=== PATIENT | female | born 1940 | race Caucasian/White ===

== ENCOUNTER 2017-12-09 18:16 | Emergency (ER) | payer MEDICARE, MEDICAID, SELFPAY ==
[2017-12-09 18:21] VITALS: BP 181/83; PULSE 62; RESP 20; TEMP 37.2; O2SAT 98; BMI 23.0
--- NOTE | 2017-12-09 18:35 | CT_ITS ---
CT head/brain wo con Ordering Physician: Jessica Forbes MD Patient Age: 77 years: Female HISTORY: ITS.REASON: fall fell and hit left side of head on floor. Left temporal area trauma . TECHNIQUE: Axial CT head without contras All CT scans at this facility used one or more dose reduction techniques , viz: automatic exposure control, ma/Kv adjustment per patient's size, (including targeted exam where dose matched to the indication; i.e. head); or iterative reconstruction technique COMPARISON : No previous studies FINDINGS No acute intracranial findings. No hemorrhage. No subdural nor extra-axial collection. No territorial infarct. Chronic small vessel deep white matter ischemic gliotic changes at cerebral hemispheres bilaterally. These are most evident about the anterior horns. Also areas at the anterior limb of the left> right internal capsule regions with low-density from small vessel disease.. These appear to be old changes. Posterior fossa. No acute findings. .. Ventricles size size satisfactory and correspond with the cerebral atrophy skull is intact and visualized paranasal sinuses clear. Mastoid, middle air and IACs regions unremarkable IMPRESSION: No acute intracranial findings. Diffuse cerebral atrophy age-appropriate. & Chronic small vessel deep white matter ischemic changes
--- NOTE | 2017-12-09 18:35 | CT_ITS ---
CT CERVICAL SPINE WITHOUT CONTRAST CT RECONSTRUCTIONS HISTORY:Neck pain following injury ORDERING PHYSICIAN: Jessica Forbes MD PATIENT AGE: 77 years COMPARISON: None Technique: All CT scans at the facility use one or more dose reduction, viz: automated exposure control; ma/kV adjustment per patient size (including targeted exams where dose is matched to indication; i.e. head); or iterative reconstruction technique PROCEDURE: Axial spiral CT scanning performed of the cervical spine beginning at the base of the skull and continuing to the upper T-spine. 3-D multiplanar reconstruction with 3-D manipulation of volumetric data set in image rendering was completed by the radiologist and/or technologist with the supervision of the radiologist on independent workstation. FINDINGS: No fracture nor subluxation is evident. Normal prevertebral soft tissues. Mild edema disc disease C4-C5 C5-C6 and C6-C7. No acute finding in the lung apices. There is a left subclavian artery stent present. No prevertebral soft tissue swelling. Mild arthritic changes are present involving the left TMJ IMPRESSION: No acute fracture. Mild cervical spondylosis
--- NOTE | 2017-12-09 18:36 | HMH.EDFALL ---
ED Disposition Clinical Impression: Fall, Knee contusion, Head injury without skull fracture Disposition: Home, Self-Care Condition on Discharge: Fair Additional Instructions: 1- head injury instructions. 2- rest and ice for the left knee. 3- fall precautions. 4- follow up with pcp in AM on final x ray reports and labs. 5- return if needed. - Critical Care Critical Care Time: No Attestation: On , the high probability of a clinically significant, sudden or life threatening deterioration of the following system(s) required my full and direct attention, intervention and personal management. The time I documented below is in addition to time spent performing reported procedures but includes the following listed in this critical care notation. Medical Decision Making - Enrique Inquiry Pt receiving controlled substance: No Enrique was queried for this patient: No Vital Signs: 12/09/17 18:21 Temperature 98.9 F Temperature Source Oral Pulse Rate [Right Brachial] 62 Respiratory Rate 20 Blood Pressure [Right Arm] 181/83 Blood Pressure Mean [Right Arm] 115 Blood Pressure Source [Right Arm] Automatic Cuff Blood Pressure Position [Right Arm] Supine 02 Sat by Pulse Oximetry 98 Oxygen Delivery Method Room Air - Lab Data Lab Results 12/09/17 19:20: WBC 6.7, RBC 4.75, Hgb 13.5, Hct 43.0, MCV 90.7, MCH 28.5, MCHC 31.4 L, RDW 13.2, Plt Count 182, MPV 9.0, Neut % (Auto) 50.7, Lymph % (Auto) 39.4, [place] % (Auto) 5.1, Eos % (Auto) 4.0, Baso % (Auto) 0.7, Neut # (Auto) 3.4, Lymph # (Auto) 2.7, [place] # (Auto) 0.3, Eos # (Auto) 0.3, Baso # (Auto) 0.1 12/09/17 19:20: Sodium 139, Potassium 3.7, Chloride 104, Carbon Dioxide 29, Anion Gap 9.7, BUN 12, Creatinine 0.76, Estimated Creat Clear 42, Estimated GFR 73, Est GFR ( Amer) 89, Glucose 219 H, Calcium 8.6, Magnesium 2.0 Result diagrams: 12/09/17 19:20 12/09/17 19:20 Orders (Tests/Meds): ORDERS Category Date Time Status CT cervical spine wo con Stat Cat Scan 12/09/17 18:[address] head/brain wo con Stat Cat Scan 12/09/17 18:35 Taken - CT Data CT Scan: Head, C-Spine Time Received: 19:[address] Reviewed: Yes: I discussed the CT results w/the radiologist, I have viewed the radiologist's interpretation Preliminary Findings: Normal/NAD - ECG Data Tracing #1 Normal sinus rhythm 60/min baseline artifact no acute findings stable from EKG done on 04/27/2014. ECG initial impression date: 12/09/17 ECG initial impression time: 18:45 Medical Decision Narrative: Patient remained neurologically and hemodynamically stable she underwent negative CT scan of the head and cervical spine for acute injuries. Her labs were within normal limit except for glucose of 219 which she was well known to be diabetic. She will be discharged with head injury instructions and fall precautions. She is to follow-up with a primary care physician in the morning and return to the ED if needed. Fall HPI - General Chief Complaint: Fall Stated Complaint: AO [id number] Fell at [facility], hit head Time Seen by Provider: 12/09/17 18:25 Mode of Arrival: Ambulatory Limitations: No Limitations Description of Symptoms (Recalled from ER Triage Doc. by RN): HERE TO TAKE DAUGHTER HOME PATIENT BEING DISCHARGED AND WHILE WALKING FELL FACE DOWN IN HALLWAY. BRUISING NOTED TO LEFT SIKHISM. NO LOSS OF CONSCIOUSNESS. DENIES ANY PROBLEMS. STATES SHE HAS BEEN DOING THIS FOR APPROX 1 YEAR AT INTERVALS. STATES ITS IF SOMEOINE JUST PUSHES HER DOWN. PATIENT IS ON PLAVIX - History of Present Illness HPI Narrative: 77 years old white female with multiple problems including cardiovascular on Plavix. She was walking in the hallway towards the [employer] when she tripped fell hit her head on the floor. She denies dizziness or presyncope symptoms prior to fall, she simply tripped by her own expression. This is not the first time it happened in the past and she did want to come to the ED but her family m
--- NOTE | 2017-12-09 18:39 | ED_ITS ---
ED Disposition Clinical Impression: Fall, Knee contusion, Head injury without skull fracture Disposition: Home, Self-Care Condition on Discharge: Fair Additional Instructions: 1- head injury instructions. 2- rest and ice for the left knee. 3- fall precautions. 4- follow up with pcp in AM on final x ray reports and labs. 5- return if needed. - Critical Care Critical Care Time: No Attestation: On , the high probability of a clinically significant, sudden or life threatening deterioration of the following system(s) required my full and direct attention, intervention and personal management. The time I documented below is in addition to time spent performing reported procedures but includes the following listed in this critical care notation. Medical Decision Making - Enrique Inquiry Pt receiving controlled substance: No Enrique was queried for this patient: No Vital Signs: 12/09/17 18:21 Temperature 98.9 F Temperature Source Oral Pulse Rate [Right Brachial] 62 Respiratory Rate 20 Blood Pressure [Right Arm] 181/83 Blood Pressure Mean [Right Arm] 115 Blood Pressure Source [Right Arm] Automatic Cuff Blood Pressure Position [Right Arm] Supine 02 Sat by Pulse Oximetry 98 Oxygen Delivery Method Room Air - Lab Data Lab Results 12/09/17 19:20: WBC 6.7, RBC 4.75, Hgb 13.5, Hct 43.0, MCV 90.7, MCH 28.5, MCHC 31.4 L, RDW 13.2, Plt Count 182, MPV 9.0, Neut % (Auto) 50.7, Lymph % (Auto) 39.4, [place] % (Auto) 5.1, Eos % (Auto) 4.0, Baso % (Auto) 0.7, Neut # (Auto) 3.4 , Lymph # (Auto) 2.7, [place] # (Auto) 0.3, Eos # (Auto) 0.3, Baso # (Auto) 0.1 12/09/17 19:20: Sodium 139, Potassium 3.7, Chloride 104, Carbon Dioxide 29, Anion Gap 9.7, BUN 12, Creatinine 0.76, Estimated Creat Clear 42, Estimated GFR 73, Est GFR ( Amer) 89, Glucose 219 H, Calcium 8.6, Magnesium 2.0 Result diagrams: 12/09/17 19:20 12/09/17 19:20 Orders (Tests/Meds): ORDERS Category Date Time Status CT cervical spine wo con Stat Cat Scan 12/09/17 18:[address] head/brain wo con Stat Cat Scan 12/09/17 18:35 Taken - CT Data CT Scan: Head, C-Spine Time Received: 19:[address] Reviewed: Yes: I discussed the CT results w/the radiologist, I have viewed the radiologist's interpretation Preliminary Findings: Normal/NAD - ECG Data Tracing #1 Normal sinus rhythm 60/min baseline artifact no acute findings stable from EKG done on 04/27/2014. ECG initial impression date: 12/09/17 ECG initial impression time: 18:45 Medical Decision Narrative: Patient remained neurologically and hemodynamically stable she underwent negative CT scan of the head and cervical spine for acute injuries. Her labs were within normal limit except for glucose of 219 which she was well known to be diabetic. She will be discharged with head injury instructions and fall precautions. She is to follow-up with a primary care physician in the morning and return to the ED if needed. Fall HPI - General Chief Complaint: Fall Stated Complaint: AO [id number] Fell at [facility], hit head Time Seen by Provider: 12/09/17 18:25 Mode of Arrival: Ambulatory Limitations: No Limitations Description of Symptoms (Recalled from ER Triage Doc. by RN): HERE TO TAKE DAUGHTER HOME PATIENT BEING DISCHARGED AND WHILE WALKING FELL FACE DOWN IN HALLWAY. BRUISING NOTED TO LEFT CHRISTIAN. NO LOSS OF CONSCIOUSNESS. DENIES ANY PRO
[2017-12-09 19:37] LABS: Basophils # 0.1 K/mm3 (0-0.2); Basophils % 0.7 % (0.1-2.0); Eosinophils # 0.3 K/mm3 (0.0-0.4); Hemoglobin 13.5 g/dL (12.2-16.2); Lymphocytes # 2.7 K/mm3 (0.7-4.5); Lymphocytes % 39.4 K/mm3 (10-50); Mean Corpuscular HGB Conc 31.4 g/dL (31.8-35.4); Mean Corpuscular Hemoglobin 28.5 pg (27.0-31.2); Mean Corpuscular Volume 90.7 fl (81-99); Monocytes # 0.3 K/mm3 (0.1-1.0); Monocytes % 5.1 % (1.7-9.3); Neutrophils # 3.4 K/mm3 (1.8-7.8); Neutrophils % 50.7 % (37.0-80.0); Platelet Count 182 K/mm3 (142-424); Red Blood Count 4.75 M/mm3 (4.20-5.40); Red Cell Distribution Width 13.2 % (11.5-17.5); White Blood Count 6.7 K/mm3 (4.8-10.8)
[2017-12-09 19:42] LABS: Anion Gap 9.7 mEq/L (5-15); Blood Urea Nitrogen 12 mg/dL (7-18); Calcium 8.6 mg/dL (8.5-10.1); Carbon Dioxide 29 mmol/L (21.0-32.0); Chloride 104 mmol/L (98-107); Creatinine Clearance Estimated 42 mL/min (0-300); Creatinine,Serum 0.76 mg/dL (0.55-1.02); Estimated Glomerular Filt Rate 73 ml/min (>60); GFR (African American) 89 ML/MIN (>60); Glucose 219 mg/dL (74-106); Potassium 3.7 mmoL/L (3.5-5.1); Sodium 139 mmol/L (136-145)
[2017-12-09 19:52] VITALS: BP 133/54; PULSE 85; RESP 16; TEMP 36.9; O2SAT 98
== END 2017-12-09 19:53 | disposition home or self-care (01) ==
PROVIDERS: Emergency Provider Emergency Medicine; Family Provider Family Medicine
DX: S09.90XA Unspecified injury of head, initial encounter (principal); S80.00XA Contusion of unspecified knee, initial encounter; W01.0XXA Fall on same level from slipping, tripping and stumbling without subsequent striking against object, initial encounter; Y93.01 Activity, walking, marching and hiking; Y92.29 Other specified public building as the place of occurrence of the external cause
CPT/HCPCS: 70450; 72125; 80048; 83735; 85025; 93005; 99282

== ENCOUNTER 2020-03-23 23:06 | Emergency (ER) | payer MEDICARE, MEDICAID, SELFPAY ==
--- NOTE | 2020-03-23 23:05 | ECG_ITS ---
APPROVED REPORT Exam: Resting ECG HR:137 bpm ECG Measurements Heart Rate 137 AXES WI 194 P 73 QRSd 114 QRS 38 QT 186 T 238 QTc 280 Conclusion Sinus tachycardia Nonspecific ST and T wave abnormality Abnormal ECG Electronically signed by : Abhijit Medrano, 03/25/2020 13:49:59
[2020-03-23 23:06] VITALS: BP 148/103; PULSE 140; RESP 16; TEMP 36.7; O2SAT 96; BMI 24.7
--- NOTE | 2020-03-23 23:13 | HMH.EDSOB ---
ED Disposition Clinical Impression: SVT (supraventricular tachycardia) Disposition: Home, Self-Care Condition on Discharge: Good Instructions: Paroxysmal Supraventricular Tachycardia Additional Instructions: see card at 0900 - Critical Care Critical Care Time: No Attestation: On , the high probability of a clinically significant, sudden or life threatening deterioration of the following system(s) required my full and direct attention, intervention and personal management. The time I documented below is in addition to time spent performing reported procedures but includes the following listed in this critical care notation. Medical Decision Making - Medical Records Medical records reviewed: Yes: I reviewed the patient's medical records. - Enrique Inquiry Pt receiving controlled substance: No Vital Signs: 03/23/20 23:06 03/23/20 23:36 03/24/20 00:00 Temperature 98.1 F Temperature Source Oral Pulse Rate [Left Radial] 140 H 71 71 Respiratory Rate 16 17 17 Blood Pressure [Right Arm] 148/103 H 140/74 118/70 Blood Pressure Mean [Right Arm] 118 96 86 Blood Pressure Source [Right Arm] Automatic Cuff Automatic Cuff Automatic Cuff Blood Pressure Position [Right Arm] Sitting Supine Supine 02 Sat by Pulse Oximetry 96 98 98 Oxygen Delivery Method Room Air Room Air - Lab Data Lab results reviewed: Yes: I reviewed the patient's lab results. Lab Results 03/23/20 23:20: WBC 9.1, RBC 4.36, Hgb 12.9, Hct 40.7, MCV 93.4, MCH 29.6, MCHC 31.7 L, RDW 13.7, Plt Count 247, MPV 8.5, Neut % (Auto) 59.3, Lymph % (Auto) 30.8, [place] % (Auto) 5.0, Eos % (Auto) 4.0, Baso % (Auto) 0.8, Neut # (Auto) 5.4, Lymph # (Auto) 2.8, [place] # (Auto) 0.5, Eos # (Auto) 0.4, Baso # (Auto) 0.1 03/23/20 23:20: Sodium 139, Potassium 3.6, Chloride 109 H, Carbon Dioxide 24, Anion Gap 9.6, BUN 14, Creatinine 0.70, Estimated Creat Clear 44, Estimated GFR 80, Est GFR ( Amer) 97, Glucose 189 H, Calcium 9.0, Troponin I < 0.01 03/23/20 23:20: TSH 1.78, Thyroxine (T4) 10.6 03/23/20 23:40: PT 10.6, INR 0.95 03/23/20 23:40: D-Dimer 0.65 03/24/20 00:00: SARS-CoV-2 IgG Ab (Rapid) Negative, SARS-CoV-2 IgM Ab (Rapid) Negative Result diagrams: 03/23/20 23:20 03/23/20 23:20 Orders (Tests/Meds): ED MEDICATIONS Generic Name Dose Route Start Last Admin Trade Name Freq PRN Reason Stop Dose Admin Sodium Chloride 1,000 mls @ 999 mls/hr 03/23/20 23:31 03/23/20 23:39 Sod Chlor 0.9% 1000ml Bag IV 03/24/20 00:31 999 mls/hr .Q1H1M JOHN Administration Discontinued Medications Generic Name Dose Route Start Last Admin Trade Name Freq PRN Reason Stop Dose Admin Adenosine 6 mg 03/23/20 23:31 03/23/20 23:38 Adenosine 6mg/2ml Vial IV 03/23/20 23:32 6 mg ONCE ONE Administration Enoxaparin Sodium 70 mg 03/24/20 00:05 03/24/20 00:10 Enoxaparin 80mg/0.8ml Syringe SQ 03/24/20 00:06 70 mg ONCE ONE Administration ORDERS Category Date Time Status XR chest 2V Stat Exams 03/24/20 00:09 Taken Troponin I Q3H Lab 03/24/20 02:30 Ordered Troponin I Q3H Lab 03/24/20 05:30 Ordered - Radiology Data #1 Image(s): Chest Image Reviewed: Yes I reviewed the patient's radiology image Preliminary Findings: Normal/NAD - ECG Data Tracing #1 Arrhythmias present: PSVT Ischemic changes: non-specific ST-T wave changes Tracing #2 Arrhythmias present: afib Ischemic changes: non-specific ST-T wave changes Tracing #3 Normal Sinus Rhythm: Yes Ischemic changes: non-specific ST-T wave changes - Physician Consults Physician Consulted: darlin Reason -: Pt condition - Reevaluation(s) Time: 01:00 Reevaluation #1: doing better and does not wish to be admitted will see card at 0900 Resp/SOB HPI - General Stated Complaint: SOB Time Seen by Provider: 03/23/20 23:15 Mode of Arrival: Ambulatory Source of Information: Patient, Relative, Medical Record Limitations: No Limitations - History of Present Illne
--- NOTE | 2020-03-23 23:19 | PC.NURSE ---
spoke with Dr. saeed and sent pt EKG. Sage stated that the pt was in SVT and to give adenosine
--- NOTE | 2020-03-23 23:22 | PC.NURSE ---
pt moved to room 2 and placed on a heart monitor and the Zoll for adenosine administration
--- NOTE | 2020-03-23 23:30 | ECG_ITS ---
APPROVED REPORT Exam: Resting ECG HR:74 bpm ECG Measurements Heart Rate 74 AXES [place] 216 P 71 QRSd 104 QRS 27 QT 390 T 35 QTc 432 Conclusion Sinus rhythm with 1st degree AV block with premature supraventricular complexes Otherwise normal ECG Electronically signed by : Abhijit Medrano, 03/25/2020 13:49:04
[2020-03-23 23:34] LABS: Basophils # 0.1 K/mm3 (0-0.2); Basophils % 0.8 % (0.1-2.0); Eosinophils # 0.4 K/mm3 (0.0-0.4); Hematocrit 40.7 % (37.0-47.0); Hemoglobin 12.9 g/dL (12.2-16.2); Lymphocytes # 2.8 K/mm3 (0.7-4.5); Lymphocytes % 30.8 % (10-50); Mean Corpuscular HGB Conc 31.7 g/dL (31.8-35.4); Mean Corpuscular Hemoglobin 29.6 pg (27.0-31.2); Mean Corpuscular Volume 93.4 fl (81-99); Mean Platelet Volume 8.5 fl (7.4-10.4); Monocytes # 0.5 K/mm3 (0.1-1.0); Neutrophils # 5.4 K/mm3 (1.8-7.8); Neutrophils % 59.3 % (37.0-80.0); Platelet Count 247 K/mm3 (142-424); Red Blood Count 4.36 M/mm3 (4.20-5.40); Red Cell Distribution Width 13.7 % (11.5-17.5); White Blood Count 9.1 K/mm3 (4.8-10.8)
[2020-03-23 23:35] LABS: Chloride 109 mmol/L (98-107); Potassium 3.6 mmoL/L (3.5-5.1); Sodium 139 mmol/L (136-145)
[2020-03-23 23:36] VITALS: BP 140/74; PULSE 71; RESP 17; O2SAT 98
--- NOTE | 2020-03-23 23:37 | PC.NURSE ---
2331 6mg of adenosine slammed followed by 60ml NS bolus. this nurse Arthur and Dr. Souza at bedside Pt tolerated well and reported relief of SOB
[2020-03-23 23:38] LABS: Anion Gap 9.6 mEq/L (5-15); Blood Urea Nitrogen 14 mg/dl (7-17); Carbon Dioxide 24 mmol/L (22.0-30.0); Creatinine Clearance Estimated 44 mL/min (50-200); Estimated Glomerular Filt Rate 80 ml/min (>60); GFR (African American) 97 ML/MIN (>60)
[2020-03-23 23:39] LABS: Glucose 189 mg/dl (74-100)
--- NOTE | 2020-03-23 23:42 | ECG_ITS ---
APPROVED REPORT Exam: Resting ECG HR:82 bpm ECG Measurements Heart Rate 82 AXES QRSd 104 QRS 27 QT 376 T 21 QTc 439 Conclusion Atrial fibrillation with normal ventricular response and delayed R wave progression Abnormal ECG Electronically signed by : Abhijit Medrano, 03/25/2020 13:49:47
[2020-03-23 23:52] LABS: Troponin I < 0.01 ng/ml (0.00-0.034)
[2020-03-23 23:58] LABS: T4 (Thyroxine) 10.6 ug/dl (5.53-11.0)
[2020-03-24] VITALS: BP 118/70; PULSE 71; RESP 17; O2SAT 98
[2020-03-24 00:03] LABS: INR 0.95 (0.9-1.1); Prothrombin Time 10.6 seconds (9.4-11.8)
--- NOTE | 2020-03-24 00:04 | PC.NURSE ---
lovenox dosing per Dorian in pharmacy
--- NOTE | 2020-03-24 00:07 | PC.NURSE ---
Pharmacy dosing for A-fib prophylactics BID Dr Souza ordered one time 70mcg dose
--- NOTE | 2020-03-24 00:09 | XR_ITS ---
PROCEDURE: XR CHEST 2V CLINICAL HISTORY: SOB Shortness of breath COMPARISON: No exams were available for comparison FINDINGS: There has been a prior CABG. There is a small hiatal hernia noted. Patchy density is present in the right infrahilar region and may be due to an area of atelectasis or infiltrate. Mild atelectatic or fibrotic change noted in the suprahilar area on the right. Scattered air-fluid levels are present in the bowel in the upper abdomen. There are degenerative changes of the thoracic spine. IMPRESSION: Patchy infiltrate or atelectasis suspected in the right lower lobe with atelectatic or fibrotic change in the right suprahilar region Small hiatal hernia with air-fluid levels in the upper abdomen Dictated by: Sami Yanes MD 03/24/2020 05:42 Sami Yanes MD in [place] 03/24/2020 05:42
[2020-03-24 00:11] LABS: Thyroid Stimulating Hormone 1.78 uIU/mL (0.465-4.68)
[2020-03-24 00:11] LABS: D-Dimer 0.65 ug/mL (0.15-8.0)
[2020-03-24 00:35] LABS: Coronavirus 19 IgG Antibody Negative (Negative); Coronavirus 19 IgM Antibody Negative (Negative)
[2020-03-24 01:11] VITALS: BP 121/72; PULSE 72; RESP 16; TEMP 36.8; O2SAT 98
== END 2020-03-24 01:15 | disposition home or self-care (01) ==
PROVIDERS: Emergency Provider Emergency Medicine; PCP Family Medicine
DX: I47.1 Supraventricular tachycardia (principal); E11.9 Type 2 diabetes mellitus without complications; Z79.899 Other long term (current) drug therapy; Z01.84 Encounter for antibody response examination
CPT/HCPCS: 36415; 71046; 80048; 84436; 84443; 84484; 85025; 85378; 85610; 86328; 93005; 96365; 96372; 96375; 99283

== ENCOUNTER → 2022-02-20 10:39 | Outpatient (CLI) | payer MEDICARE, MEDICAID, SELFPAY ==
--- NOTE | 2022-02-20 11:10 | MR_ITS ---
FINAL REPORT CLINICAL HISTORY: RIGHT KNEE PAIN AFTER FALL X 2 MONTHS AGO FINDINGS: Multiplanar MR imaging of the right knee was performed without contrast. Motion artifact is identified on all of the images. There is medial meniscal degeneration without evidence of a tear. There is a tear of the anterior horn of the lateral meniscus. The anterior and posterior cruciate ligaments are intact. The medial collateral ligament and lateral ligamentous complex are intact. The patellar and quadriceps tendons are intact. There is no evidence of fracture. There are foci of patellar tendinitis. There is moderate lateral and patellofemoral chondromalacia. Moderate joint effusion is seen. The musculature is intact. Small popliteal cyst is identified. IMPRESSION: Tear anterior horn lateral meniscus. Moderate lateral and patellofemoral chondromalacia. Reviewed, Interpreted and Dictated by Oswaldo Cortes III, MD Transcribed by Leigh Ann Sandhu Authenticated and [facility]
== END ==
PROVIDERS: PCP Family Medicine; Visit Provider Family Medicine
DX: M25.561 Pain in right knee (principal)
CPT/HCPCS: 73721

== ENCOUNTER 2022-06-25 07:49 | Emergency (ER) | payer MEDICARE, MEDICAID, SELFPAY ==
[2022-06-25] VITALS (8 sets, daily range): BP systolic 99–133; BP diastolic 50–90; PULSE 61–84; RESP 18–20; TEMP 36.7–37.1; O2SAT 95–97; BMI 24.7
--- NOTE | 2022-06-25 08:00 | PC.NURSE ---
0800 DR. BASSETT AT BEDSIDE
--- NOTE | 2022-06-25 08:05 | CT_ITS ---
FINAL REPORT CLINICAL HISTORY: pain, n/v FINDINGS: CT OF THE ABDOMEN AND PELVIS WITH CONTRAST Axial CT images of the abdomen and pelvis were obtained after the administration of intravenous contrast. Coronal reformatted images were also obtained and reviewed.This study was performed with techniques to keep radiation doses as low as reasonably achievable (ALARA). Individualized dose reduction techniques using automated exposure control or adjustment of mA and/or kV according to the patient's size were employed. Abdomen: There is scarring in the lung bases. There is a 4 mm nodule in the lateral right middle lobe. There is a 6 mm nodule in the lateral left lower lobe. A 3 mm nodule is seen in the right lower lobe. There is a moderate hiatal hernia. The heart is normal in size. The liver has an unremarkable appearance. There has been cholecystectomy. There is mild biliary duct dilatation. The spleen is unremarkable. No adrenal mass is present. The pancreas has an unremarkable appearance. The kidneys are normal, without evidence of mass or hydronephrosis. The aorta is normal in caliber. There is no free fluid or adenopathy. No mass or abnormal fluid collection is seen. Pelvis: The appendix is not well-visualized. The urinary bladder is unremarkable. No inflammatory process is seen. There are postoperative changes in the left inguinal region with a fat containing hernia inferior to the mesh. There is no evidence of bowel obstruction. There is severe degenerative change of the lumbar spine with dextroscoliosis. There are postoperative changes involving the right hip. IMPRESSION: No evidence of acute intra-abdominal process. Moderate hiatal hernia. 6 mm or less nodules in the lung bases. Recommend 6 month follow-up chest CT per Fleischner criteria. Reviewed, Interpreted and Dictated by Oswaldo Cortes III, MD Transcribed by Lele Vargas Authenticated and [facility]
[2022-06-25 08:17] LABS: Basophils # 0.1 K/mm3 (0-0.2); Eosinophils # 0.2 K/mm3 (0.0-0.4); Eosinophils % 1.8 % (0.1-12.0); Hematocrit 35.4 % (37.0-47.0); Hemoglobin 11.7 g/dL (12.2-16.2); Lymphocytes # 1.8 K/mm3 (0.7-4.5); Lymphocytes % 20.8 % (10-50); Mean Corpuscular HGB Conc 32.9 g/dL (31.8-35.4); Mean Corpuscular Hemoglobin 32.1 pg (27.0-31.2); Mean Corpuscular Volume 97.5 fl (81-99); Mean Platelet Volume 8.5 fl (7.4-10.4); Monocytes # 0.5 K/mm3 (0.1-1.0); Monocytes % 5.9 % (1.7-9.3); Neutrophils # 6.1 K/mm3 (1.8-7.8); Neutrophils % 70.6 % (37.0-80.0); Platelet Count 332 K/mm3 (142-424); Red Blood Count 3.63 M/mm3 (4.20-5.40); Red Cell Distribution Width 14.4 % (11.5-17.5); White Blood Count 8.7 K/mm3 (4.8-10.8)
[2022-06-25 08:24] LABS: Occult Blood,Stool Negative (Negative)
[2022-06-25 08:26] LABS: Chloride 102 mmol/L (98-107); Sodium 135 mmol/L (136-145)
[2022-06-25 08:29] LABS: Alanine Aminotransferase 23 U/L (12-78); Albumin Level 2.9 g/dl (3.5-5.0); Albumin/Globulin Ratio 1.2 (1.1-1.8); Alkaline Phosphatase 57 U/L (38-126); Aspartate Amino Transferase 30 U/L (14-36); Bilirubin,Total 0.4 mg/dl (0.2-1.3); Blood Urea Nitrogen 16 mg/dl (7-17); Calcium 7.9 mg/dl (8.4-10.2); Carbon Dioxide 28 mmol/L (22.0-30.0); Creatinine Clearance Estimated 41 mL/min (50-200); Estimated Glomerular Filt Rate 69 ml/min (>60); GFR (African American) 83 ML/MIN (>60); Globulin 2.5 g/dL (1.3-3.2); Glucose 87 mg/dl (74-100); Lipase 161 U/L (23-300); Total Protein,Serum 5.4 g/dl (6.3-8.2)
--- NOTE | 2022-06-25 09:28 | HMH.EDGENADL ---
Discharge Plan Disposition Patient Disposition: Home, Self-Care Condition: Good Prescriptions Prescriptions: No Action gabapentin 100 mg capsule 100 mg PO BID Qty: 60 5RF tramadol 50 mg tablet 50 mg PO Q6H PRN (Reason: pain) Qty: 120 0RF hydrocodone-acetaminophen 5-325 mg tablet 1 tab PO Q6H PRN (Reason: pain) Qty: 120 0RF furosemide 40 MG Tablet 40 mg PO DAILY metformin 500 MG Tablet 500 mg PO BID clopidogrel 75 MG Tablet 75 mg PO DAILY sertraline 50 MG Tablet 50 mg PO DAILY tamoxifen 20 MG Tablet 20 mg PO DAILY atorvastatin 80 MG tablet 80 mg PO DAILY aspirin 81 MG tablet,delayed release (DR/EC) 81 mg PO DAILY levothyroxine 112 MCG tablet 112 mcg PO DAILY pantoprazole [address] for susp in packet 40 mg PO DAILY Referrals Follow up/Referrals: Leo Almazan MD [Primary Care Provider] - See instructions Activity Restrictions/Add. Instructions Additional Instructions/Restrictions: Home medication as directed. Stay well-hydrated. Recommend starting a bowel regiment for more regular bowel movements Clinical Impressions Clinical Impression: Abdominal pain, Nausea & vomiting Instructions Patient Instructions: DI for Acute Abdominal Pain Discharge ED Provider: Hollis Ford General Adult HPI General Chief complaint: Abdominal Pain Stated complaint: Vomitting, Left side Stomach pain Time Seen by Provider: 06/25/22 08:00 Mode of Arrival: Wheelchair Source of Information: Patient, Relative and Medical Record Limitations: No Limitations Description of Symptoms (Recalled from ER Triage Doc. by RN): pt brought in from [facility] by family. pt reports 3 day history of n/v/d and abdominal pain more on left side. does reports black stool. no blood in emesis History of Present Illness HPI narrative: 81yo F resident of local longterm brought to the emergency department secondary to abdominal pain with nausea, vomiting, constipation and diarrhea. Patient's daughter accompanies her and provides additional history. Patient's PCP wanted her sent to the hospital for CAT scan. Patient reports symptoms been ongoing for several days. Reports nausea with vomiting anytime she smells food. Denies significant abdominal pain. Patient has a past medical history of diabetes, hypothyroidism, high blood pressure, heart disease, A. fib, COPD. Denies any significant past surgery. Related Data Home Medications Medication Instructions Recorded Confirmed clopidogrel 75 mg tablet 75 mg PO DAILY Blood thinner 03/26/18 03/24/20 furosemide 40 mg tablet 40 mg PO DAILY Fluid 03/26/18 03/24/20 metformin 500 mg tablet 500 mg PO BID dm 03/26/18 03/24/20 sertraline 50 mg tablet 50 mg PO DAILY mood 03/26/18 03/24/20 tamoxifen 20 mg tablet 20 mg PO DAILY breast ca 03/26/18 03/24/20 aspirin 81 mg tablet,delayed 81 mg PO DAILY CAD 03/24/20 03/24/20 release atorvastatin 80 mg tablet 80 mg PO DAILY cholesterol 03/24/20 03/24/20 levothyroxine 112 mcg tablet 112 mcg PO DAILY hypothyroidism 03/24/20 03/24/20 pantoprazole 40 mg granules 40 mg PO DAILY GERD 03/24/20 03/24/20 delayed-release for susp in packet Previous Rx's Medication Instructions Recorded gabapentin 100 mg capsule 100 mg PO BID #60 caps 01/25/22 tramadol 50 mg tablet 50 mg PO Q6H PRN pain #120 tabs 01/25/22 hydrocodone 5 mg-acetaminophen 325 1 tab PO Q6H PRN pain #120 tabs 05/29/22 mg tablet Allergies Allergy/AdvReac Type Severity Reaction Status Date / Time No Known Allergies Allergy Verified 12/09/17 18:30 [facility] Disclaimer: The information contained in this section may have been updated after the patient was seen, as this information can be updated by other users. Social History Smoking Status: Never smoker alcohol intake: never current occupational status: previously employed Travel in the last 8 w
--- NOTE | 2022-06-25 10:10 | PC.NURSE ---
DR. BASSETT SPEAKING WITH DR. STREET
--- NOTE | 2022-06-25 10:43 | PC.NURSE ---
REPORT CALLED TO MERLIN AT [facility] AT THIS TIME
== END 2022-06-25 10:45 | disposition home or self-care (01) ==
PROVIDERS: Emergency Provider Family Medicine; PCP Family Medicine
DX: R10.9 Unspecified abdominal pain (principal); R11.2 Nausea with vomiting, unspecified; R19.7 Diarrhea, unspecified; E11.9 Type 2 diabetes mellitus without complications; E03.9 Hypothyroidism, unspecified; I11.9 Hypertensive heart disease without heart failure; I48.91 Unspecified atrial fibrillation; J44.9 Chronic obstructive pulmonary disease, unspecified
CPT/HCPCS: 74177; 80053; 82272; 83690; 85025; 99285; G0328; Q9967

== ENCOUNTER 2023-01-30 18:26 | Inpatient (IN) | payer MEDICARE, MEDICAID, SELFPAY ==
--- NOTE | 2023-01-30 18:27 | ECG_ITS ---
APPROVED REPORT Exam: Resting ECG HR:81 bpm ECG Measurements Heart Rate 81 AXES QRSd 132 QRS 57 QT 379 T 208 QTc 417 Conclusion ATRIAL FIBRILLATION INTRAVENTRICULAR CONDUCTION DELAY [130+ ms QRS DURATION] ABNORMAL ECG UNCONFIRMED REPORT Electronically signed by : Abhijit Medrano MD 02/01/2023 08:42:46
[2023-01-30 18:32] VITALS: BP 123/52; PULSE 91; RESP 19; TEMP 37.6; O2SAT 96; BMI 21.9
--- NOTE | 2023-01-30 18:51 | HMH.EDGENADL ---
Discharge Plan Disposition Patient Disposition: Admitted As Inpatient Condition: Fair Clinical Impressions Clinical Impression: LOUISA (acute kidney injury), Acute respiratory failure with hypoxia Pneumonia Qualifiers: Pneumonia type: aspiration pneumonia Aspiration pneumonia type: unspecified Laterality: bilateral Lung location: unspecified part of lung Qualified Code(s): J69.0 - Pneumonitis due to inhalation of food and vomit Discharge ED Provider: Tang Damian General Adult HPI General Chief complaint: Weakness Stated complaint: SOA Time Seen by Provider: 01/30/23 18:40 Mode of Arrival: Wheelchair Source of Information: Patient and Relative Limitations: No Limitations Description of Symptoms (Recalled from ER Triage Doc. by RN): 82 yo F presents to ED from [facility]. pt resides at [facility]. pts daughter reports pt has been having ongoing weakness. staff called to report pt was having new oxygen requirements. nurse reports only able to get pts O2 sat up to 92% on 2L. upon arrival to ED pt 85% O2 sat on RA. pt reports that she has been unable to urinate today. History of Present Illness HPI narrative: 82-year-old female history of coronary artery disease, heart failure hypertension, hyperlipidemia, presents with fever, hypoxia, right-sided chest pain and decreased urination. History obtained from patient and patient's daughter. They report that she has been generally weak today. Her temperature was reportedly 101 at nursing facility. Patient was reportedly hypoxic in the 80s at nursing facility requiring 2 L nasal cannula. Patient does not normally have an oxygen requirement. Patient has not peed since last night which is abnormal for her, this is despite having received Lasix at her facility. Patient has history of chronic right lower extremity swelling which is somewhat worse than normal now. No reported history of blood clot though she is unsure if she is ever been checked. Related Data Home Medications Medication Instructions Recorded Confirmed clopidogrel 75 mg tablet 75 mg PO DAILY Blood thinner 03/26/18 01/30/23 furosemide 40 mg tablet 20 mg PO DAILY Fluid 03/26/18 01/30/23 metformin 500 mg tablet 1,000 mg PO BID dm 03/26/18 01/30/23 aspirin 81 mg tablet,delayed 81 mg PO DAILY CAD 03/24/20 01/30/23 release atorvastatin 80 mg tablet 80 mg PO DAILY cholesterol 03/24/20 01/30/23 levothyroxine 112 mcg tablet 112 mcg PO DAILY hypothyroidism 03/24/20 01/30/23 acetaminophen 325 mg tablet 1,000 mg PO DAILY PRN Breakthrough 01/30/23 01/30/23 (Tylenol) Pain amiodarone 200 mg tablet 200 mg PO DAILY afib 01/30/23 01/30/23 bisacodyl 5 mg tablet,delayed 10 mg PO DAILY constipation 01/30/23 01/30/23 release (Dulcolax (bisacodyl)) ferrous sulfate 325 mg (65 mg 325 mg PO DAILY Pain 01/30/23 01/30/23 iron) tablet fluticasone propionate 50 50 mcg intranasal DAILY allergies 01/30/23 01/30/23 mcg/actuation nasal spray,suspension gabapentin 100 mg capsule 100 mg PO BID Pain 01/30/23 01/30/23 loperamide 2 mg tablet (Imodium 2 mg PO Q4H PRN Diarrhea 01/30/23 01/30/23 A-D) metoclopramide HCl 10 mg tablet 10 mg PO TID n/v 01/30/23 01/30/23 pantoprazole 40 mg tablet,delayed 40 mg PO DAILY gerd 01/30/23 01/30/23 release polyethylene glycol 3350 17 17 g PO DAILY Constipation 01/30/23 01/30/23 gram/dose oral powder (Miralax) prochlorperazine maleate 10 mg 10 mg feeding tube Q6 n/v 01/30/23 01/30/23 tablet Previous Rx's Medication Instructions Recorded hydrocodone 10 mg-acetaminophen 1 tab PO Q6H PRN pain #120 tabs 12/24/22 325 mg tablet Allergies Allergy/AdvReac Type Severity Reaction Status Date / Time No Known Allergies Allergy Verified 12/09/17 18:30 [facility] Disclaimer: The information contained in this section may have been updated after the patient was seen, as this information can be updated by other users. Medical History (Updated 01/31/23 @ 01:07 by Tang Rapp
--- NOTE | 2023-01-30 18:56 | XR_ITS ---
PROCEDURE INFORMATION: Exam: XR Chest Exam date and time: 01/30/2023 6:59 PM Age: 82 years old Clinical indication: Fever; Prior surgery; Surgery date: 6+ months; Surgery type: Open heart; Additional info: Fever, decreased o2, right chest pain TECHNIQUE: Imaging protocol: Radiologic exam of the chest. Views: 1 view. COMPARISON: CR XR CHEST 2V 03/24/2020 12:14 AM FINDINGS: Tubes, catheters and devices: Multiple sternal cerclage wires overlie the sternum. Multiple surgical clips overlie the right upper mediastinum. Multiple surgical clips overlie the right breast. Lungs: Pleuroparenchymal scarring of the lung bases with subsegmental atelectasis is present without large consolidations or pleural effusions. Pleural spaces: See Lungs finding. Heart/Mediastinum: Unremarkable. No cardiomegaly. Bones/joints: Unremarkable. IMPRESSION: Pleuroparenchymal scarring of the lung bases with subsegmental atelectasis is present without large consolidations or pleural effusions.
[2023-01-30 19:05] LABS: Chloride 98 mmol/L (98-107); Potassium 4.4 mmoL/L (3.5-5.1); Sodium 132 mmol/L (136-145)
[2023-01-30 19:08] LABS: Alanine Aminotransferase 24 U/L (12-78); Albumin Level 2.8 g/dl (3.5-5.0); Alkaline Phosphatase 86 U/L (38-126); Anion Gap 10.4 mEq/L (5-15); Aspartate Amino Transferase 33 U/L (14-36); Bilirubin,Total 0.5 mg/dl (0.2-1.3); Blood Urea Nitrogen 19 mg/dl (7-17); Carbon Dioxide 28 mmol/L (22.0-30.0); Creatinine Clearance Estimated 28 mL/min (50-200); Estimated Glomerular Filt Rate 36 ml/min (>60); GFR (African American) 43 ML/MIN (>60)
[2023-01-30 19:09] LABS: Calcium 8.8 mg/dl (8.4-10.2); Globulin 2.9 g/dL (1.3-3.2); Glucose 96 mg/dl (74-100); Total Protein,Serum 5.7 g/dl (6.3-8.2)
[2023-01-30 19:10] LABS: Microscopic, Urine URINE MICROSCOPIC (MICROSCOPIC)
[2023-01-30 19:15] LABS: Basophils # 0.1 K/mm3 (0-0.2); Basophils % 0.1 % (0.1-2.0); Eosinophils # 0.2 K/mm3 (0.0-0.4); Eosinophils % 0.5 % (0.1-12.0); Hematocrit 36.1 % (37.0-47.0); Hemoglobin 11.8 g/dL (12.2-16.2); Lymphocytes % 6.4 % (10-50); Mean Corpuscular HGB Conc 32.7 g/dL (31.8-35.4); Mean Corpuscular Hemoglobin 30.2 pg (27.0-31.2); Mean Corpuscular Volume 92.4 fl (81-99); Mean Platelet Volume 8.7 fl (7.4-10.4); Monocytes # 1.1 K/mm3 (0.1-1.0); Monocytes % 3.5 % (1.7-9.3); Neutrophils # 28.5 K/mm3 (1.8-7.8); Neutrophils % 89.5 % (37.0-80.0); Platelet Count 334 K/mm3 (142-424); Red Cell Distribution Width 15.7 % (11.5-17.5); White Blood Count 31.8 K/mm3 (4.8-10.8)
[2023-01-30 19:18] LABS: D-Dimer 1.58 ug/mL (0.0-0.5); MANUAL DIFFERENTIAL MANUAL DIFFERENTIAL (MANUAL DIFF)
[2023-01-30 19:22] LABS: Appearance,Urine CLEAR (Clear); Bilirubin,Urine Negative (Negative); Blood, Urine Negative (Negative); Color,Urine YELLOW (Yellow); Glucose,Urine (UA) Negative (Negative); Ketones,Urine Negative (Negative); Leukocyte Esterase,Urine 1+ (Negative); Nitrate,Urine Negative (Negative); Protein,Urine Negative (Negative); Urobilinogen,Urine 0.2 EU/dl (0.2)
[2023-01-30 19:32] LABS: NT Pro Brain Natriuretic Pep. 1350 pg/mL (0-450); Troponin I 0.02 ng/ml (0.00-0.034)
[2023-01-30 19:33] LABS: Lymphocytes % 4 % (10-50); Monocytes % 1 % (2-9); Neutrophils % 95 % (42-76); Platelet Estimate Normal; Schistocytes 1+; Total Cells Counted 100
--- NOTE | 2023-01-30 19:47 | CT_ITS ---
PROCEDURE INFORMATION: Exam: CTA Chest With Contrast Exam date and time: 01/30/2023 8:16 PM Age: 82 years old Clinical indication: Abnormal findings; Abnormal diagnostic tests; Elevated d-dimer; Additional info: Chest pain shortness of breath elevated d-dimer TECHNIQUE: Imaging protocol: Computed tomographic angiography of the chest with contrast. Exam focused on the arteries. 3D rendering (Not supervised by radiologist): MIP and/or 3D reconstructed images were created by the technologist. Radiation optimization: All CT scans at this facility use at least one of these dose optimization techniques: automated exposure control; mA and/or kV adjustment per patient size (includes targeted exams where dose is matched to clinical indication); or iterative reconstruction. Contrast material: ISOVUE; Contrast volume: 70 ml; Contrast route: INTRAVENOUS (IV); REPORTING DATA: Count of CT and Cardiac NM exams in prior 12 months: This patient has received [address] and 0 known cardiac nuclear medicine studies in the 12 months prior to the current study. COMPARISON: CR XR CHEST PORTABLE 01/30/2023 6:59 PM FINDINGS: Tubes, catheters and devices: Moderate three-vessel calcific atherosclerotic disease of the coronary arteries. Stenting of the proximal left subclavian. Pulmonary arteries: Normal. No pulmonary emboli. Aorta: Unremarkable. No aortic aneurysm. No aortic dissection. Lungs: Patchy subpleural predominant ground-glass opacities are concerning for atypical infection, possibly mild changes of influenza like illness. Pleural spaces: Unremarkable. No pneumothorax. No pleural effusion. Heart: Cardiomegaly unchanged. Lymph nodes: Unremarkable. No enlarged lymph nodes. Gallbladder and bile ducts: There are surgical clips within the gallbladder fossa. Stomach and bowel: Moderate size hiatal hernia with gastric cardia located at the inferior mediastinum. Bones/joints: Unremarkable. No acute fracture. Soft tissues: Postsurgical changes multiple surgical clips of the right breast. IMPRESSION: Patchy subpleural predominant ground-glass opacities are concerning for atypical infection, possibly mild changes of influenza like illness. No CT angiography evidence of pulmonary embolism. The
[2023-01-30 19:49] LABS: Squamous Epithelial Cell,Urine Occasional #/hpf (0-5); WBC,Urine Occasional #/hpf (0-3)
--- NOTE | 2023-01-30 20:15 | PC.NURSE ---
patient to CT
--- NOTE | 2023-01-30 20:46 | PC.NURSE ---
PATIENT AMITTED TO [facility] OBSERVATION WITH PNA AND LOUISA TO SERVICE OF HOSPITALIST.
[2023-01-30 21:01] VITALS: BP 99/47; PULSE 88; RESP 18; TEMP 36.9; O2SAT 96
[2023-01-30 21:25] VITALS: BMI 22.1
--- NOTE | 2023-01-30 21:30 | PC.NURSE ---
Report called to Litzy SANTIAGO
--- NOTE | 2023-01-30 21:36 | PC.NURSE ---
2124 RECEIVED PHONE REPORT YENNY NEWTON RN/ED. PATIENT IS 82 YO FEMALE FROM [facility] WITH DIAGNOSIS OF PNEUMONIA AND LOUISA TO ROOM 209.
--- NOTE | 2023-01-30 21:38 | EXP.HP ---
History of Present Illness *Admission Date: 01/30/23 *Reason for visit:: weakness and fever *History of present illness: This is 82 year-old female with extensive medical history including but not limited to Afib, coronary artery disease, heart failure., hypertension, hyperlipidemia, dysphagia who presented to ER, referred from nursing facility for evaluation of fever, hypoxia, right-sided chest pain and decreased urine output. History obtained from patient and patient's daughter at bedside. They report that she has been generally weak today. Her temperature was reportedly 101 at nursing facility. Patient was reportedly hypoxic in the 80s at nursing facility requiring 2 L nasal cannula. Patient does not normally have an oxygen requirement. Patient continue to getting worse despite de measures taken at her facility. Admitted for further treatment. [facility] Disclaimer: The information contained in this section may have been updated after the patient was seen, as this information can be updated by other users. Medical History (Updated 01/31/23 @ 01:07 by Tang Damian MD) Afib CHF (congestive heart failure) HTN (hypertension) Social History (Updated 06/25/22 @ 10:39 by Hollis Ford DO) Smoking Status: Never smoker alcohol intake: never current occupational status: previously employed Travel in the last 8 weeks: None Review of Systems Review of Systems Review of systems:: pertinent systems reviewed and negative unless documented below Meds Home Medications and Allergies Home Medications Medication Instructions Recorded Confirmed Type clopidogrel 75 mg tablet 75 mg PO DAILY Platelet inhibitor 03/26/18 01/30/23 History furosemide 40 mg tablet 20 mg PO DAILY Fluid / Swelling 03/26/18 01/30/23 History metformin 500 mg tablet 1,000 mg PO BID Diabetes 03/26/18 01/30/23 History aspirin 81 mg tablet,delayed 81 mg PO DAILY Heart Health 03/24/20 01/30/23 History release atorvastatin 80 mg tablet 80 mg PO DAILY cholesterol 03/24/20 01/30/23 History levothyroxine 112 mcg tablet 112 mcg PO DAILY hypothyroidism 03/24/20 01/30/23 History amiodarone 200 mg tablet 200 mg PO DAILY afib 01/30/23 01/30/23 History bisacodyl 5 mg tablet,delayed 10 mg PO DAILYP PRN Constipation 01/30/23 01/31/23 History release (Dulcolax (bisacodyl)) ferrous sulfate 325 mg (65 mg 325 mg PO DAILY Supplementation 01/30/23 01/30/23 History iron) tablet fluticasone propionate 50 50 mcg intranasal DAILY allergies 01/30/23 01/30/23 History mcg/actuation nasal spray,suspension gabapentin 100 mg capsule 100 mg PO BID Pain 01/30/23 01/30/23 History loperamide 2 mg tablet (Imodium 2 mg PO Q4H PRN Diarrhea 01/30/23 01/30/23 History A-D) metoclopramide HCl 10 mg tablet 10 mg PO TID Nausea / Vomiting 01/30/23 01/30/23 History pantoprazole 40 mg tablet,delayed 40 mg PO DAILY Acid Reflux 01/30/23 01/30/23 History release polyethylene glycol 3350 17 17 g PO DAILY Constipation 01/30/23 01/30/23 History gram/dose oral powder (Miralax) prochlorperazine maleate 10 mg 10 mg feeding tube Q6H Nausea / 01/30/23 01/31/23 History tablet Vomiting acetaminophen 500 mg tablet 1,000 mg PO Q6HP PRN Fever Or Pain 01/31/23 01/31/23 History cyanocobalamin (vitamin B-12) 1,000 mcg PO DAILY Supplementation 01/31/23 01/31/23 History 1,000 mcg tablet hydrocodone 10 mg-acetaminophen 1 tab PO BID Pain 01/31/23 01/31/23 History 325 mg tablet nitroglycerin 0.4 mg sublingual 0.4 mg sublingual Q5MINP PRN Chest 01/31/23 01/31/23 History tablet Pain ondansetron 4 mg disintegrating 4 mg PO Q6HP PRN Nausea 01/31/23 01/31/23 History tablet salmeterol 50 mcg/dose blister 50 mcg inhalation BID Copd 01/31/23 01/31/23 History powder for inhalation sennosides 8.6 mg tablet (senna) 17.2 mg PO DAILYP PRN Constipation 01/31/23 01/31/23 History New Prescriptions to Start Prescriptions: Allergies Allergy/AdvReac Type Severity Reaction Status Date /
[2023-01-30 21:43] VITALS: BP 112/48; PULSE 83; RESP 18; TEMP 37.2; O2SAT 95
--- NOTE | 2023-01-30 21:47 | PC.NURSE ---
pt arrived to floor at this time
[2023-01-30 22:34] LABS: Troponin I 0.02 ng/ml (0.00-0.034)
[2023-01-31] VITALS (9 sets, daily range): BP systolic 107–127; BP diastolic 50–65; PULSE 69–83; RESP 16–18; TEMP 36.3–36.9; O2SAT 91–97; BMI 22.1
[2023-01-31 01:19] LABS: Coronavirus 19, PCR Not Detected (NotDetected); Influenza A, PCR Not Detected (NotDetected); Influenza B, PCR Not Detected (NotDetected)
--- NOTE | 2023-01-31 04:09 | PC.NURSE ---
HAS RESTED WELL. NO S/S OF RESPIRATORY DISTRESS. NO COUGHING NOTED. 02 AT 2LNC, SATS 96%. REMAINS WEAK REQUIRING 2 PEOPLE TO ASSIST PATIENT TO BSC.
--- NOTE | 2023-01-31 06:00 | PC.NURSE ---
PATIENT REMOVED HER OXIMETER AND REMOVED HER 02 CANNULA . WHEN ASKED WHY PATIENT SAID I DONT WANT THEM ON ANY MORE.
[2023-01-31 06:31] LABS: Basophils % 0.1 % (0.1-2.0); Eosinophils # 0.1 K/mm3 (0.0-0.4); Eosinophils % 0.7 % (0.1-12.0); Hematocrit 29.3 % (37.0-47.0); Lymphocytes % 10.2 % (10-50); Mean Corpuscular HGB Conc 32.6 g/dL (31.8-35.4); Mean Corpuscular Hemoglobin 30.5 pg (27.0-31.2); Mean Corpuscular Volume 93.5 fl (81-99); Mean Platelet Volume 8.5 fl (7.4-10.4); Monocytes # 0.8 K/mm3 (0.1-1.0); Neutrophils # 16.8 K/mm3 (1.8-7.8); Platelet Count 284 K/mm3 (142-424); Red Blood Count 3.13 M/mm3 (4.20-5.40); Red Cell Distribution Width 15.9 % (11.5-17.5); White Blood Count 19.8 K/mm3 (4.8-10.8)
[2023-01-31 06:32] LABS: Chloride 100 mmol/L (98-107); Potassium 3.6 mmoL/L (3.5-5.1); Sodium 133 mmol/L (136-145)
[2023-01-31 06:33] LABS: MANUAL DIFFERENTIAL MANUAL DIFFERENTIAL (MANUAL DIFF)
[2023-01-31 06:34] LABS: Hemoglobin 9.6 g/dL (12.2-16.2)
[2023-01-31 06:35] LABS: Alanine Aminotransferase 17 U/L (12-78); Albumin Level 2.2 g/dl (3.5-5.0); Alkaline Phosphatase 73 U/L (38-126); Anion Gap 7.6 mEq/L (5-15); Aspartate Amino Transferase 23 U/L (14-36); Bilirubin,Total 0.3 mg/dl (0.2-1.3); Blood Urea Nitrogen 19 mg/dl (7-17); Calcium 8.2 mg/dl (8.4-10.2); Carbon Dioxide 29 mmol/L (22.0-30.0); Creatinine Clearance Estimated 33 mL/min (50-200); Estimated Glomerular Filt Rate 43 ml/min (>60); GFR (African American) 52 ML/MIN (>60); Globulin 2.3 g/dL (1.3-3.2); Glucose 73 mg/dl (74-100); Magnesium 1.6 mg/dl (1.6-2.3); Total Protein,Serum 4.5 g/dl (6.3-8.2)
[2023-01-31 07:21] LABS: Lymphocytes % 9 % (10-50); Monocytes % 3 % (2-9); Neutrophils % 88 % (42-76); Platelet Estimate Normal; RBC Morphology Normal; Total Cells Counted 100
--- NOTE | 2023-01-31 07:44 | HMH.PHAINT1 ---
Pharmacy Intervention Comments: Medication history complete, medications verified with list from facility - Radha Mas PharmD Candidate 2023
--- NOTE | 2023-01-31 08:29 | EXP.PN ---
Subjective *Date: 01/31/23 *Time: 12:20 Interval history: No acute events overnight She feels weak all over but denies shortness of breath or worsening cough She denies chest pain Exam Data for Last 24 hours Vital signs and Labs for Last 24 Hours: Temp Pulse Resp BP Pulse Ox O2 Del Method O2 Flow Rate 98.3 F 74 18 112/63 91 L Room Air 91 01/31/23 06:14 01/31/23 06:14 01/31/23 06:14 01/31/23 06:14 01/31/23 06:16 01/31/23 06:38 01/31/23 06:38 Laboratory Results - last 24 hr 01/30/23 18:36: WBC 31.8 H*, RBC 3.90 L, Hgb 11.8 L, Hct 36.1 L, MCV 92.4, MCH 30.2, MCHC 32.7, RDW 15.7, Plt Count 334, MPV 8.7, Neut % (Auto) 89.5 H, Lymph % (Auto) 6.4 L, [place] % (Auto) 3.5, Eos % (Auto) 0.5, Baso % (Auto) 0.1, Neut # (Auto) 28.5 H, Lymph # (Auto) 2.0, [place] # (Auto) 1.1 H, Eos # (Auto) 0.2, Baso # (Auto) 0.1, Total Counted 100, Neutrophils % (Manual) 95 H, Lymphocytes % (Manual) 4 L, Monocytes % (Manual) 1 L, Platelet Estimate Normal, RBC Morphology Not Reportable, Schistocytes 1+, D-Dimer 1.58 H, Sodium 132 L, Potassium 4.4, Chloride 98, Carbon Dioxide 28, Anion Gap 10.4, BUN 19 H, Creatinine 1.40 H, Estimated Creat Clear 28, Estimated GFR 36 L, Est GFR ( Amer) 43 L, Glucose 96, Calcium 8.8, Total Bilirubin 0.5, AST 33, ALT 24, Alkaline Phosphatase 86, Troponin I 0.02, NT-Pro-B Natriuret Pep 1350 H, Total Protein 5.7 L, Albumin 2.8 L, Globulin 2.9, Albumin/Globulin Ratio 1.0 L 01/30/23 19:05: Urine Color Yellow, Urine Appearance Clear, Urine pH 6.0, Ur Specific [place] 1.010, Urine Protein Negative, Urine Glucose (UA) Negative, Urine Ketones Negative, Urine Blood Negative, Urine Nitrate Negative, Urine Bilirubin Negative, Urine Urobilinogen 0.2, Ur Leukocyte Esterase 1+ A, Urine RBC None, Urine WBC Occasional, Ur Squamous Epith Cells Occasional, Urine Bacteria None 01/30/23 22:05: Troponin I 0.02 01/30/23 23:40: Influenza Type A Ag Negative, Influenza Type B Ag Negative 01/31/23 00:00: SARS-CoV-2 (PCR) Not detected, Influenza A Untype (PCR) Not detected, Influenza Type B (PCR) Not detected 01/31/23 05:30: WBC 19.8 H D, RBC 3.13 L, Hgb 9.6 L D, Hct 29.3 L, MCV 93.5, MCH 30.5, MCHC 32.6, RDW 15.9, Plt Count 284, MPV 8.5, Neut % (Auto) 85.0 H, Lymph % (Auto) 10.2, [place] % (Auto) 4.0, Eos % (Auto) 0.7, Baso % (Auto) 0.1, Neut # (Auto) 16.8 H, Lymph # (Auto) 2.0, [place] # (Auto) 0.8, Eos # (Auto) 0.1, Baso # (Auto) 0.0, Total Counted 100, Neutrophils % (Manual) 88 H, Lymphocytes % (Manual) 9 L, Monocytes % (Manual) 3, Platelet Estimate Normal, RBC Morphology Normal, Sodium 133 L, Potassium 3.6, Chloride 100, Carbon Dioxide 29, Anion Gap 7.6, BUN 19 H, Creatinine 1.20 H, Estimated Creat Clear 33, Estimated GFR 43 L, Est GFR ( Amer) 52 L D, Glucose 73 L D, Calcium 8.2 L, Magnesium 1.6, Total Bilirubin 0.3, AST 23 D, ALT 17 D, Alkaline Phosphatase 73, Total Protein 4.5 L, Albumin 2.2 L D, Globulin 2.3, Albumin/Globulin Ratio 1.0 L I & O for Last 24 hours: Intake & Output 01/28/23 01/29/23 01/30/23 01/31/23 23:59 23:59 23:59 23:59 Intake Total 370 / 370 705 / 705 Output Total 0 / 0 Balance 370 / 370 705 / 705 Weight 60.441 kg 60.441 kg Constitutional Constitutional: no acute distress *Routine HEENT Exam Head: Present normocephalic Eye: Present EOMI and PERRL ENT: Present mucous membranes moist *Routine Neck Exam Neck: Present supple; Absent lymphadenopathy *Routine Respiratory Exam Respiratory: Present CTA bilaterally *Routine Cardiovascular Exam Cardiovascular: Present RRR *Routine Abdominal Exam Abdominal: Present soft and normoactive bowel sounds; Absent tenderness *Routine Extremities Exam Extremities: Absent cyanosis, clubbing or edema *Routine Skin Exam Skin: Present warm; Absent rash *Routine Neurological Exam Neurological: Present alert and oriented X3 Assessment and Plan *Assessment and plan (1) Acute respiratory failure with hypoxia: Status: Acute Category: Medical Code(s): J96
--- NOTE | 2023-01-31 08:45 | HMH.OTEV ---
OT Inpatient Evaluation Rehab OT IP Evaluation Start: 01/30/23 22:46 Freq: ONCE Status: Active Protocol: [facility]23 [facility] (Rec: 01/31/23 08:45 [facility] [id number]) Rehab OT IP Assessment Subjective History Pt oriented x 3 on arrival. Pt agreeable to engage in therapy evaluation. Pt is an 82 year-old female with extensive medical history including but not limited to Afib, coronary artery disease, heart failure., hypertension, hyperlipidemia, dysphagia who presented to ER, referred from nursing facility for evaluation of fever, hypoxia, right-sided chest pain and decreased urine output. Pt admitted for LOUISA and PNA on . Prior to being in the hospital, pt lived in [facility] for assisted care. Pt reports she required assistance with all ADLs and was dependent upon staff and family for completion of IADLs. Pt normally used a wheelchair at all times, but was able to transfer to and from surfaces with assistance from staff. Subjective I feel better now. Objective Patient Orientation Person,Place,Birthday Upper Extremity Gross ROM WFL Bed Mobility bed mobility-scooting,bed mobility - supine/sit Assist Level Minimal x 2 (25% assist) Transfer Training Sit/Stand/Step Transfer Assist Level Moderate x 2 (50% assist) Performing Toilet Hygiene Ability Assistance X1 Overall Commode/Toilet Transfer Ability Assistance x1 Commode/Toilet Transfer Technique Stand Step Pivot Commode/Toilet Transfer Assistive Toilet Rails Devices Rehab OT IP prob,goals,plan Problems Date of Evaluation: 01/31/23 Rehab Potential Rehab Potential Innapropriate for Skilled Therapy Discharge Plan OT Discharge Plan At this time, pt appears to be at her baseline with functional transfers and ADL independence. Pt can return
--- NOTE | 2023-01-31 09:00 | PC.NURSE ---
PROVIDED PT WITH SPECIMEN CUP TO COLLECT SPUTUM SAMPLE. PT AWARE OF NEED FOR SAMPLE. STATES SHE ISN'T COUGHING ANYTHING UP AT THIS TIME.
--- NOTE | 2023-01-31 11:12 | HMH.PTEV ---
Physical Therapy Evaluation Rehab PT IP Evaluation Start: 01/30/23 22:46 Freq: ONCE Status: Active Protocol: Document 01/31/23 09:00 [facility] (Rec: 01/31/23 11:12 [facility] [id number]) Subjective/History History History 82 [address] adm to [facility] with PNA and LOUISA. She has hx of a-fib, CAD, HF, HTN, HLD. She reports she lives at a SNF at baseline and requires assistance with all ADLs and transfers. W/c is her primary means of mobility and she has not walked for some time. Subjective Subjective Pt reports pain in B knees this am, but agrees to mobility assessment. Rehab PT IP Eval Objective Appearance Patient Behavior Appropriate Patient Orientation Person,Place,Time Difficulty following instructions none Speech Pattern Clear Ambulation Patient Able to Ambulate No Balance Ability to Arise Unable Sitting Balance Steady, safe Standing Balance Unsteady Dynamic Sitting Balance Ability Fair Dynamic Standing Balance Ability Poor Transfers Bed Transfer Ability Moderate x 1 (50% assist) Chair Transfer Ability Moderate x 1 (50% assist) Sit to Stand Bed Transfer Ability Moderate x 1 (50% assist) Sit to Stand Chair Transfer Ability Moderate x 1 (50% assist) Rehab PT IP prob,goals,plan Problems Date of Evaluation: 01/31/23 Discharge Plan PT Discharge Plan Pt is essentially at her baseline for all mobility at this time. She is appropriate to return to SNF with therapy as needed once medically stable for d/c. G -code Required No Eval Complexity Eval Charge Codes 34544 - High Complexity PHYSICIAN CERTIFICATION: I certify the specified therapy services for Berenice Preston are required, authorized, and reviewed every 30 days.
--- NOTE | 2023-01-31 11:36 | PC.NURSE ---
COURTESY ROUND PATIENT ASLEEP AT THIS TIME. EMPTIED TRASH , REFILLED ICE WATER AND CHECKED LINENS. CALL LIGHT WITHIN REACH OF PATIENT.
[2023-01-31 11:43] LABS: POC Glucose,Bedside 94 (70-110)
--- NOTE | 2023-01-31 12:03 | PC.NURSE ---
TURNED O2 FROM 2L TO 1L. PT TOLERATING WELL.
--- NOTE | 2023-01-31 13:18 | PC.NURSE ---
ROUNDED ON PT. WAS SITTING UP IN CHAIR FINISHING LUNCH. DAUGHTER AT BEDSIDE. NO NEEDS OR C/O NOTED AT THIS TIME.
--- NOTE | 2023-01-31 13:44 | PC.NURSE ---
DNI SIGNED BY PT. DAUGHTER PRESENT. ON THE CHART. SIGNED BY DR MALIK.
--- NOTE | 2023-01-31 14:06 | HMH.SLDYSPHA ---
Speech & Language Evaluation Speech/Language Dysphagia Evaluation Start: 01/31/23 13:29 Freq: ONCE Status: Active Protocol: Document 01/31/23 13:29 ZEFERINOFREDDY (Rec: 01/31/23 14:06 [facility] [id number]) Dysphagia Assess/Goals/Plan Assessment Date of Evaluation: 01/31/23 Evaluation Type Initial Certification Assessment/Problems Dysphagia per MD order. Does Patient Qualify for Service No Qualify/Failure Comment Based on the results of the clinical swallow evaluation, no further skilled speech therapy services are warranted at this time. Recommendations PHYSICIAN CERTIFICATION: The specified therapy services are required, authorized, and reviewed every 30 days. Diet Recommendations Normal Liquid Type Recommendations Normal/Thin SL Swallow Guidelines Standard Aspiration Prec. Dysphagia Swallow Precautions/Strategies Sitting Upright (90 deg),Small Bites and Sips,Alternate Liquids/Solids Place Food on Either side of Mouth Plan Pt/Guardian verbally ack understanding Yes of dx/prognosis/goals Pt/Guardian verbally ack understanding Yes of/consent to tx prog G -code Required No Education Instructions provided CSE results and diet reccomendations discussed with pt and her daughter, who expressed understanding. Pt/Caregiver able to recall information Able to recall/restate Reinforcement needed No Speech & Language HPI History Present Illness Description of Patient Problem Ms. Preston is an 82 y.o. female presenting to [facility] with fever, hypoxia, right chesst pain, and decreased urine output. She was brought to [facility] from a nursing facility. PMH is significant for CAD, Afib, heart failure, HTN, HLD, and dysphagia. She currently has an order for a soft diet. Language Primary Language Luxembourgish General Information General Current Food Consistancy Mechanical Soft,Thin Liquids Dentition Upper Only Oxygen Status Nasal Cannula Patient Orientation Person,Place,Time,Situation Ability to Follow Directions Excellent Communication Ability No Impairment Dysphagia:Food Presentation Evaluation Food Type Pureed,Regular,Liquid Dysphagia Evaluation Summary CSE completed to analyze and
--- NOTE | 2023-01-31 15:41 | PC.NURSE ---
HELPED PT BACK TO BED FROM BEDSIDE COMMODE. NOTICED REDNESS AND SLIGHT BREAKDOWN TO COCCYX. PAD PLACED, WILL MAKE PT Q2H TURN, SHE STATES SHE IS UNABLE TO TURN HERSELF. MADE PRIMARY NURSE AWARE.
[2023-01-31 16:30] LABS: POC Glucose,Bedside 104 (70-110)
--- NOTE | 2023-01-31 16:41 | PC.NURSE ---
A&OX4. PT HAS TOLERATED 1L NC WELL THROUGHOUT SHIFT. NO COUGH NOTED. +2 PULSES NOTED THROUGHOUT. HAND ASSISTANT CLINICAL NURSE MANAGER EQUAL. NO EDEMA NOTED. RESPIRATIONS REGULAR AND UNLABORED. LUNG SOUNDS CLEAR THROUGHOUT. HEART RATE REGULAR. ACTIVE BOWEL SOUNDS HEARD IN ALL 4 QUADRANS. 1 BM THUS FAR. VOIDS PER BSC WITH 1-2 PERSON ASSIST. CLEAR YELLOW URINE NOTED. PAIN REPORTED ONCE THUS FAR IN RLE. STATES THIS IS A CHRONIC PAIN THAT SHE HAS DEALT WITH FOR YEARS. [facility] SCHEDULED PAIN MEDS. GAVE TYELNOL PER AUG AND ON REASSESSMENT, PT STATED PAIN WAS TOLERABLE. SPEECH EVAL COMPLETED TODAY BY SPEECH DEPARTMENT. PER SPEECH PT CAN EAT A REGULAR AND HAS NO ISSUES WITH SWALLOWING BUT PT WOULD LIKE FOOD CHOPPED TO HELP HER. ORDER PLACED. NS INFUSING AT 50ML/HR. P RECEIVED ROCEPHIN ONCE THIS SHIFT AND TOLERATED WELL. PT IS STARTING TO HAVE BLANCHABLE REDNESS AFTER SITTING UP IN THE CHAIR FOR A FEW HOURS TODAY. PRESSURE DRESSING PLACED AND NURSING STAFF WILL TURN PT Q2 HOURS. DAUGHTER DID VISIT MOST OF THIS SHIFT. BED IN LOWEST POSITION. CALL LIGHT WITHIN REACH. VSS.
[2023-01-31 20:34] LABS: POC Glucose,Bedside 115 (70-110)
[2023-02-01] VITALS: BP 147/70; PULSE 60; PULSE 73; RESP 18; TEMP 37; O2SAT 95
[2023-02-01 04:00] VITALS: BP 125/68; PULSE 78; PULSE 80; RESP 18; TEMP 36.9; O2SAT 96; BMI 23.0
--- NOTE | 2023-02-01 05:05 | PC.NURSE ---
PATIENT ALERT AND ORIENTED THIS SHIFT. UP WITH 2 ASSIST TO BSC. VITALS WNL. PATIENT CURRENTLY ON ROOM AIR WITH O2 SATS ABOVE 90% PATIENT TURNED Q2 HOURS, REMAINS ON TELE. CALL [facility] AND PERSONAL ITEMS IN REACH, POC ONGOING.
[2023-02-01 05:30] LABS: POC Glucose,Bedside 94 (70-110)
[2023-02-01 07:03] LABS: Basophils % 0.2 % (0.1-2.0); Eosinophils # 0.1 K/mm3 (0.0-0.4); Eosinophils % 0.9 % (0.1-12.0); Hematocrit 33.5 % (37.0-47.0); Lymphocytes # 1.3 K/mm3 (0.7-4.5); Lymphocytes % 10.9 % (10-50); Mean Corpuscular HGB Conc 29.8 g/dL (31.8-35.4); Mean Corpuscular Hemoglobin 30.4 pg (27.0-31.2); Mean Corpuscular Volume 101.9 fl (81-99); Mean Platelet Volume 8.7 fl (7.4-10.4); Monocytes # 0.5 K/mm3 (0.1-1.0); Monocytes % 4.5 % (1.7-9.3); Neutrophils # 9.8 K/mm3 (1.8-7.8); Neutrophils % 83.4 % (37.0-80.0); Platelet Count 269 K/mm3 (142-424); Red Blood Count 3.29 M/mm3 (4.20-5.40); Red Cell Distribution Width 15.8 % (11.5-17.5); White Blood Count 11.7 K/mm3 (4.8-10.8)
--- NOTE | 2023-02-01 07:51 | EXP.PN ---
Subjective *Date: 02/01/23 *Time: 07:51 Exam Data for Last 24 hours Vital signs and Labs for Last 24 Hours: Temp Pulse Resp BP Pulse Ox O2 Del Method O2 Flow Rate 98.6 F 80 18 147/70 H 95 Room Air 1 02/01/23 00:00 02/01/23 04:00 02/01/23 00:00 02/01/23 00:00 02/01/23 00:00 02/01/23 06:44 01/31/23 23:09 Laboratory Results - last 24 hr 01/31/23 11:23: POC Glucose 94 01/31/23 16:23: POC Glucose 104 01/31/23 20:20: POC Glucose 115 H 02/01/23 05:21: POC Glucose 94 02/01/23 06:50: WBC 11.7 H D, RBC 3.29 L, Hgb 10.0 L, Hct 33.5 L, MCV 101.9 H, MCH 30.4, MCHC 29.8 L, RDW 15.8, Plt Count 269, MPV 8.7, Neut % (Auto) 83.4 H, Lymph % (Auto) 10.9, [place] % (Auto) 4.5, Eos % (Auto) 0.9, Baso % (Auto) 0.2, Neut # (Auto) 9.8 H, Lymph # (Auto) 1.3, [place] # (Auto) 0.5, Eos # (Auto) 0.1, Baso # (Auto) 0.0 I & O for Last 24 hours: Intake & Output 01/29/23 01/30/23 01/31/23 02/01/23 23:59 23:59 23:59 23:59 Intake Total 370 / 370 1988 Output Total 0 / 0 Balance 370 / 370 1988 Weight 60.441 kg 60.44 kg Microbiology Reports for the Last 24 Hours: Microbiology 01/30/23 19:05 Urine,Clean Catch Urine Culture - Preliminary NO GROWTH AFTER 24 HOURS
[2023-02-01 08:00] VITALS: BP 127/57; PULSE 80; PULSE 81; RESP 16; TEMP 36.6; O2SAT 96
[2023-02-01 08:04] LABS: Chloride 107 mmol/L (98-107); Potassium 3.3 mmoL/L (3.5-5.1); Sodium 134 mmol/L (136-145)
[2023-02-01 08:07] LABS: Anion Gap 8.3 mEq/L (5-15); Blood Urea Nitrogen 12 mg/dl (7-17); Carbon Dioxide 22 mmol/L (22.0-30.0); Creatinine Clearance Estimated 40 mL/min (50-200); Estimated Glomerular Filt Rate 60 ml/min (>60); GFR (African American) 72 ML/MIN (>60)
[2023-02-01 08:08] LABS: Calcium 8.2 mg/dl (8.4-10.2); Glucose 80 mg/dl (74-100)
[2023-02-01 11:02] LABS: POC Glucose,Bedside 136 (70-110)
--- NOTE | 2023-02-01 11:04 | EXP.DC.SUM ---
General Admission date:: 01/30/23 Discharge date: 02/01/23 HPI HPI HPI: This is 82 year-old female with extensive medical history including but not limited to Afib, coronary artery disease, heart failure., hypertension, hyperlipidemia, dysphagia who presented to ER, referred from nursing facility for evaluation of fever, hypoxia, right-sided chest pain and decreased urine output. History obtained from patient and patient's daughter at bedside. They report that she has been generally weak today. Her temperature was reportedly 101 at nursing facility. Patient was reportedly hypoxic in the 80s at nursing facility requiring 2 L nasal cannula. Patient does not normally have an oxygen requirement. Patient continue to getting worse despite de measures taken at her facility. Admitted for further treatment. Hospital Course Hospital Course Hospital Course: #acute hypoxic respiratory failure #acute pneumonia #edilberto #possible aspiration CTA chest on day of admission revealed Patchy subpleural predominant ground-glass opacities are concerning for atypical infection, possibly mild changes of influenza like illness. No CT angiography evidence of pulmonary embolism. On day of admission she also had leukocytosis with 31K WBCs The patient was started on rocephin and azithromycin and received 2 days. She also received iv fluids. Her edilberto and leukocytosis resolved. She initially required a couple liters of supplemental oxygen via nasal cannula but by the day of discharge she was saturating 94-97% on room air. Throughout the entire hospital course she didn't complain of shortness of breath or cough. She will need to f/u with her PCP in 1 week She is to take 4 days of augmentin and azithromycin and is to resume her home medications Time spent on this discharge is 35 minutes. Exam Data for Last 24 hours Vital signs and Labs for Last 24 Hours: Temp Pulse Resp BP Pulse Ox O2 Del Method O2 Flow Rate 97.8 F 81 16 127/57 L 96 Nasal Cannula 1 02/01/23 08:00 02/01/23 08:00 02/01/23 08:00 02/01/23 08:00 02/01/23 08:00 02/01/23 10:44 02/01/23 10:44 Laboratory Results - last 24 hr 01/31/23 11:23: POC Glucose 94 01/31/23 16:23: POC Glucose 104 01/31/23 20:20: POC Glucose 115 H 02/01/23 05:21: POC Glucose 94 02/01/23 06:50: WBC 11.7 H D, RBC 3.29 L, Hgb 10.0 L, Hct 33.5 L, MCV 101.9 H, MCH 30.4, MCHC 29.8 L, RDW 15.8, Plt Count 269, MPV 8.7, Neut % (Auto) 83.4 H, Lymph % (Auto) 10.9, [place] % (Auto) 4.5, Eos % (Auto) 0.9, Baso % (Auto) 0.2, Neut # (Auto) 9.8 H, Lymph # (Auto) 1.3, [place] # (Auto) 0.5, Eos # (Auto) 0.1, Baso # (Auto) 0.0, Sodium 134 L, Potassium 3.3 L, Chloride 107, Carbon Dioxide 22, Anion Gap 8.3, BUN 12 D, Creatinine 0.90 D, Estimated Creat Clear 40, Estimated GFR 60, Est GFR ( Amer) 72 D, Glucose 80, Calcium 8.2 L 02/01/23 10:54: POC Glucose 136 H I & O for Last 24 hours: Intake & Output 01/29/23 01/30/23 01/31/23 02/01/23 23:59 23:59 23:59 23:59 Intake Total 370 / 370 1988 480 / 480 Output Total 0 / 0 0 / 0 Balance 370 / 370 1988 480 / 480 Weight 60.441 kg 60.44 kg 62.624 kg Microbiology Reports for the Last 24 Hours: Microbiology 01/30/23 19:05 Urine,Clean Catch Urine Culture - Preliminary Constitutional Constitutional: no acute distress *Routine HEENT Exam Head: Present normocephalic Eye: Present EOMI and PERRL ENT: Present mucous membranes moist *Routine Neck Exam Neck: Present supple; Absent lymphadenopathy *Routine Respiratory Exam Respiratory: Present CTA bilaterally *Routine Cardiovascular Exam Cardiovascular: Present RRR *Routine Abdominal Exam Abdominal: Present soft and normoactive bowel sounds; Absent tenderness *Routine Extremities Exam Extremities: Absent cyanosis, clubbing or edema *Routine Skin Exam Skin: Present warm; Absent rash *Routine Neurological Exam Neurological: Present alert and oriented X3 Results Data Completed and Pending Labs on
--- NOTE | 2023-02-01 11:14 | SW/DCPLANNER ---
This patient currently resides at [facility] level of care. I have faxed updated information to Berenice fernandez/ Praveen Figueroa. Patient will discharge back to facility today per MD.
[2023-02-01 18:58] LABS: Peripheral Smear Review Scanned Result
== END 2023-02-01 13:06 | DRG 177 ==
LOC: ER 20:33 → 2ND 20:52
PROVIDERS: Nurse Practitioner Family; Admitting Provider Internal Medicine; Emergency Provider Emergency Medicine; PCP Family Medicine; Visit Provider Internal Medicine
DX: J69.0 Pneumonitis due to inhalation of food and vomit (principal); J96.01 Acute respiratory failure with hypoxia; E87.1 Hypo-osmolality and hyponatremia; N17.9 Acute kidney failure, unspecified; I25.10 Atherosclerotic heart disease of native coronary artery without angina pectoris; I11.0 Hypertensive heart disease with heart failure; I50.9 Heart failure, unspecified; E78.5 Hyperlipidemia, unspecified; R13.10 Dysphagia, unspecified
CPT/HCPCS: 36415; 71045; 71275; 80048; 80053; 81001; 82962; 83735; 83880; 84484; 85007; 85025; 85378; 87040; 87086; 87275; 87276; 87636; 92610; 93005; 97163; 97165; 99291; J0456; J0696; Q9967